=== PATIENT | female | born 1960 | race Caucasian/White ===

== ENCOUNTER → 2019-03-24 | Outpatient (CLI) | payer OTHER ==
--- NOTE | 2019-03-24 11:51 | EXE ---
[facility] [place] [address] STRESS ECHOCARDIOGRAM Name: SHAAN ANDREA Room #: REG [facility]#: [id number] ������������� Admission: 03/24/19 ������������� Attend Phys: Marco Samuel MD Discharge: ��� ������������� ��� Date of : 56 Date of Service: 03/24/19 1151 �� Report #: [id number] �������� ��������������������������������������������[id number] THIS REPORT FOR: //name// APPROVED REPORT Study performed: 03/24/2019 10:25:50 Exam: Stress Echocardiogram Indication: Screening for CAD Stress Nurse: Mary Fox RN Status: routine Ht: 5 ft 9 in HR: 71 bpm BP: 120/82 mmHg Rhythm: NSR Medical History Medical History: Tobacco history (Current/Recent) Medications: Atenolol Allergies: No known drug allergies Cardiac Risk Factors: Hyperlipidemia, HTN, Smoking Procedure The patient underwent an Exercise Stress Test using the Teo Protocol. Blood pressure, heart rate, and EKG were monitored. An Echocardiogram was performed by ski technician in four stages in quad fashion. At peak stress, four selected images were obtained and placed side by side with resting images for comparison. Stress Test Details Stress Test: Exercise stress testing was performed using a Eto protocol. HR Resting HR: 71 bpm Max Heart Rate (APMHR): 159 bpm Max HR Achieved: 164 bpm Target HR (85% APMHR): 135 bpm % of APMHR: 103 Recovery HR: 102 bpm HR response to stress: Normal HR response to stress BP Resting BP: 120/82 mmHg Max BP: 168/98 mmHg Recovery BP: 128/70 mmHg BP response to stress: Normal blood pressure response to stress. [facility] [address] [place] [address] STRESS ECHOCARDIOGRAM Name: SHAAN ANDREA Room #: REG CL [facility]#: [id number] ������������� Admission: 03/24/19 ������������� Attend Phys: Marco Samuel MD Discharge: ��� ������������� ��� Date of : 56 Date of Service: 03/24/19 1151 �� Report #: [id number] �������� ��������������������������������������������[id number] ECG Resting ECG: Sinus Rhythm Stress ECG: Sinus Rhythm, nonspecific ST-T abnormalities ST Change: Non-ischemic Clinical Reason for Termination: Completed protocol Exercise duration: 7 min 47 sec Highest Stage Achieved: Stage 3: 3.4 mph at 14% grade. Exercise capacity: 10.40 METs Pre-Stress Echo The resting Echocardiogram showed normal left ventricular contractility with an estimated Ejection Fraction of about 55-60%. Normal wall motion in all segments on baseline images. Post-Stress Echo The stress Echocardiogram showed normal left ventricular contractility with an estimated Ejection Fraction of about >70%. Normal augmentation of wall motion in all segments on post stress images. Clinical Normal augmentation of myocardial wall segments using a 17 segment model. No clinical or ECG evidence for ischemia. Conclusion Clinical Response: Non-ischemic Exercise Capacity: Average Stress ECG Response: Non-ischemic Stress Echo Images: Non-ischemic The left ventricle is normal in size and wall thickness in both the rest and stress images. Other Information Study Quality: Adequate <Conclusion> The left ventricle is normal in size and wall thickness in both the rest and stress images. ��������������������������������������������� <ELECTRONICALLY SIGNED> ���������������������������������������� By: Marco Samuel MD ��������������������������������������������� 03/24/19 1151 1151 1151 Marco Samuel MD /INF
== END ==
LOC: CV 09:48
DX: I25.10 Atherosclerotic heart disease of native coronary artery without angina pectoris (principal); E78.5 Hyperlipidemia, unspecified; I10 Essential (primary) hypertension; Z87.891 Personal history of nicotine dependence